=== PATIENT | male | born 1950 | race Caucasian/White ===

== ENCOUNTER 2016-04-21 11:41 | Emergency (ER) | payer MEDICARE, BC ==
[2016-04-21] MEDS ORDERED: NS 0.9% 1000 ML* 1,000 ML IV ONE (12:21)
[2016-04-21] MEDS ORDERED: Iodixanol* (CONTRAST) 320 MG/ML 100 ML SDV IV ONE (12:34)
[2016-04-21 12:41] LABS: Hematocrit 36 % (42-52); Hemoglobin 11.8 g/dl (14.0-18.0); Mean Corpuscular HGB Conc 32 g/dl (31-36); Mean Corpuscular Hemoglobin 26 pg (27-31); Mean Corpuscular Volume 80 fL (80-94); Mean Platelet Volume 9 um3 (7.4-10.4); Red Blood Count 4.53 10^6/ul (4.0-5.4); White Blood Count 11.9 10^3/ul (3.5-10.8)
[2016-04-21 12:42] LABS: Comments Flag Yes
[2016-04-21 12:43] LABS: Add Diff/Slide Review? Slide Review Added; Red Cell Distribution Width 23 % (10.5-15)
[2016-04-21 12:52] LABS: Albumin 3.1 g/dL (3.2-5.2); BUN/Creatinine Ratio 23.1 (8-20); Calcium 8.3 mg/dL (8.6-10.3); EGFR African American 70.8 (>60); EGFR Non-African American 55.1 (>60); Globulin 3.4 g/dL (2-4); Potassium 3.7 mmol/L (3.5-5.0); Total Bilirubin 1.1 mg/dL (0.2-1.0); Total Protein 6.5 g/dL (6.4-8.9)
--- NOTE | 2016-04-21 13:07 | ED ---
Dizziness - HPI Summary HPI Summary: Patient presents for delayed evaluation of weakness and falls for the last 2 to 3 days. Uncertain if he is dehydrated, but denies any head trauma, chest or back pain, change to po intake and feels as if he is drinking and eating fluids well. Supposed to be on 3 day infusions of chemotherapy (Mon thru Mon), but this morning the catheter fell out. - History Of Current Complaint Chief Complaint: EDWeakness Stated Complaint: INCRESSED FALLS, WEAKNESS, Time Seen by Provider: 04/21/16 12:05 Hx Obtained From: Patient - Allergies/Home Medications Allergies/Adverse Reactions: Allergies Allergy/AdvReac Type Severity Reaction Status Date / Time No Known Allergies Allergy Verified 02/09/16 12:46 Home Medications: Home Medications Diazepam TAB(*) [Valium TAB(*)] 10 mg PO BEDTIME 04/21/16 [History Confirmed ] PMH/Surg Hx/FS Hx/Imm Hx Endocrine/Hematology History: Reports: Hx Diabetes - II Cardiovascular History: Reports: Hx Hypertension - not on meds History: Denies: Hx Renal Disease Musculoskeletal History: Reports: Other Musculoskeletal History - SCIATICA Sensory History: Reports: Hx Contacts or Glasses, Hx Hearing Problem Opthamlomology History: Reports: Hx Contacts or Glasses Psychiatric History: Reports: Other Psychiatric Issues/Disorders - sleep disorder - Cancer History Cancer Type, Location and Year: colon - Surgical History Surgery Procedure, Year, and Place: colostomy Infectious Disease History: No Infectious Disease History: Denies: Traveled Outside the [place] in Last 30 Days - Family History Known Family History: Positive: Diabetes Negative: Cardiac Disease, Hypertension - Social History Alcohol Use: None Substance Use Type: Reports: None Smoking Status (MU): Never Smoked Tobacco Review of Systems Negative: Fever, Chills Cardiovascular: Negative Negative: Chest Pain Respiratory: Negative Negative: Shortness Of Breath, Cough Negative: Abdominal Pain, Vomiting, Diarrhea, Nausea Genitourinary: Negative Positive: Weakness All Other Systems Reviewed And Are Negative: Yes Physical Exam Triage Information Reviewed: Yes Vital Signs On Initial Exam: Initial Vitals Temp Pulse Resp BP Pulse Ox 99 F 109 18 100/70 98 04/21/16 12:02 04/21/16 12:02 04/21/16 12:02 04/21/16 12:02 04/21/16 12:02 Vital Signs Reviewed: Yes Appearance: Positive: Well-Appearing, No Pain Distress, Well-Nourished Skin: Positive: Warm, Skin Color Reflects Adequate Perfusion, Dry, Other - L anterior/superior chest port is non tender. Head/Face: Positive: Normal Head/Face Inspection Eyes: Positive: Normal, EOMI, SHAMEKA ENT: Positive: Normal ENT inspection, Hearing grossly normal, Pharynx normal Neck: Positive: Supple, Nontender, No Lymphadenopathy Respiratory/Lung Sounds: Positive: Clear to Auscultation, Breath Sounds Present Cardiovascular: Positive: Normal, RRR, Pulses are Symmetrical in both Upper and Lower Extremities, Tachycardia Abdomen Description: Positive: Nontender, No Organomegaly, Soft, Other: - Ecru and Viable ostomy Musculoskeletal: Positive: Normal, Strength/ROM Intact Neurological: Positive: Normal, Sensory/Motor Intact, Alert, Oriented to Person Place, Time, CN Intact II-III, Reflexes Intact - Kate Coma Scale Coma Scale Total: 15 Diagnostics - Vital Signs Vital Signs Temp Pulse Resp BP Pulse Ox 04/21/16 12:02 99 F 109 18 100/70 98 - Laboratory Lab Results: Lab Results 04/21/16 04/21/16 Range/Units 12:20 12:20 WBC 11.9 H (3.5-10.8) 10^3/ul RBC 4.53 (4.0-5.4) 10^6/ul Hgb 11.8 L (14.0-18.0) g/dl Hct 36 L (42-52) % MCV 80 (80-94) fL MCH 26 L (27-31) pg MCHC 32 (31-36) g/dl RDW 23 H (10.5-15) % Plt Count 114 L (150-450) 10^3/ul MPV 9 (7.4-10.4) um3 Neut % (Auto) 90.3 H (38-83) % Lymph % (Auto) 2.2 L (25-47) % [place] % (Auto) 6.4 (1-9) % Eos % (Auto) 0.2 (0-6) % Baso % (Auto) 0.9 (0-2) % Absolute Neuts (auto) 10.8 H (1.5-7.7) 10^3/ul Absolute Lymphs (auto) 0.3 L (1.0-4.8) 10^3/ul Absolute Monos (auto) 0.8 (0-0.8) 10^3/ul Absolute Eos (auto) 0 (0-0.6) 10^3/ul Absolute Basos (auto) 0.1 (0-0.2) 10^3/ul Absolute Nucleated RBC 0 10^3/ul Nucleated RBC % 0 Sodium 130 L (133-145) mmol/L Potassium 3.7 (3.5-5.0) mmol/L Chloride 100 L (101-111) mmol/L Carbon Dioxide 20 L (22-32) mmol/L Anion Gap 10 (2-11) mmol/L BUN 30 H (6-24) mg/dL Creatinine 1.30 H (0.67-1.17) mg/dL Est GFR ( Amer) 70.8 (>60) Est GFR (Non-Af Amer) 55.1 (>60) BUN/Creatinine Ratio 23.1 H (8-20) Glucose 302 H (70-100) mg/dL Calcium 8.3 L (8.6-10.3) mg/dL Total Bilirubin 1.10 H (0.2-1.0) mg/dL AST 40 H (13-39) U/L ALT 17 (7-52) U/L Alkaline Phosphatase 102 (34-104) U/L Total Protein 6.5 (6.4-8.9) g/dL Albumin 3.1 L (3.2-5.2) g/dL Globulin 3.4 (2-4) g/dL Albumin/Globulin Ratio 0.9 L (1-3) Lipase 57 (11.0-82.0) U/L Result Diagrams: 04/21/16 12:20 04/21/16 12:20 Lab Statement: Any lab studies that have been ordered have been reviewed, and results considered in the medical decision making process. - EKG No standard instances Cardiac Rate: Tachycardia EKG Rhythm: Sinus Tachycardia ST Segment: Normal Ectopy: None Dizzy Course/Dx - Diagnoses Differential Diagnosis/HQI/PQRI: CVA, Metabolic Abnormality, Other - Unclear if this is worsened cerebral metastasis, PE, volume depletion. CT head, CTA chest/ abdomen for metastasis. IVF and discuss with Oncology. Provider Diagnoses: Dehydration - Provider Notifications Discussed Care Of Patient with: Dr. Kim Glez will send a chemo nurse to evaluate the patient's port and agrees with CT scans to determine etiology. After the CT scans, Dr. Glez deferred any plans to Dr. Merino. Dr. Merino, patient, , and I discussed the case, and the patient and decided to be discharged, understand return instructions, and FU care with Dr. Merino tomorrow. Discharge - Discharge Plan Condition: Improved Disposition: HOME Prescriptions: Misc. Devices [Walker/Adult/Folding] 1 mis .SEE ORDER DAILY #1 mis Patient Education Materials: Dehydration (ED) Referrals: Saúl Andrade MD [Primary Care Provider] -
--- NOTE | 2016-04-21 16:56 | RAD ---
INDICATION: Intracranial injury. History of colon cancer. COMPARISON: CT brain February 12, 2016 TECHNIQUE: Noncontrast axial source images were acquired from the skull base to the vertex. FINDINGS: Ventricles/sulci: The ventricles and cisterns are normal in size and configuration for age. Brain parenchyma: There is no focal parenchymal finding, evidence of intracranial mass, or intracranial mass effect. Intracranial hemorrhage:None. Extra-axial spaces: There are no abnormal extra axial fluid collections or evidence of extra-axial mass. Calvarium: There is no calvarial fracture or other calvarial abnormality. Scalp: There is no evidence of scalp or extracalvarial soft tissue abnormality. Paranasal sinuses/mastoid: The paranasal sinuses and mastoid air cells are clear. Other: None. IMPRESSION: NEGATIVE NONCONTRAST EXAMINATION
--- NOTE | 2016-04-21 17:00 | RAD ---
INDICATION: Syncope. Trauma. Falls. History of colon cancer with hepatic metastasis COMPARISON: CT chest/abdomen/pelvis April 18, 2016 TECHNIQUE: Axial source images were obtained from the thoracic inlet to the symphysis pubis following administration of oral and intravenous contrast. 84 mL Omnipaque [address] angiographic technique of the chest was utilized. Routine imaging of the abdomen and pelvis was performed. Coronal and sagittal reconstructed images were acquired. CHEST FINDINGS: Neck/thyroid: The visualized neck to include the thyroid appear normal. Chest wall: There are no acute abnormalities of the bony thorax or chest wall. There is a left-sided Jblvgl-a-[id number] catheter terminating in the superior vena cava. There is no supraclavicular, infraclavicular, or axillary lymphadenopathy. Lungs : There are no pulmonary parenchymal masses. There is mild atelectasis in the right lung base new since examination from 2 days ago. The pulmonary interstitium appears normal. There are no endobronchial lesions. Cardiomediastinal structures: The heart is normal in size. There is no pericardial effusion. There is no evidence of aortic aneurysm or dissection. The pulmonary vessels appear normal. There is no mediastinal or hilar adenopathy. The esophagus appears normal. Pleura : Small, new, right-sided pleural effusion. ABDOMINAL/PELVIC FINDINGS: Liver: The liver is normal in size. Numerous hepatic masses involving both right left hepatic lobes and described on examination performed 2 days ago. There is no ductal dilatation. Gallbladder: There are no calcified gallstones. There is no evidence of wall thickening or pericholecystic fluid. Spleen: Mild splenomegaly. No focal mass. There is a small splenule. Pancreas: There is no evidence of pancreatic mass or ductal dilatation. Adrenal glands: There is no evidence of adrenal mass. Kidneys: The kidneys are normal in size and position. There are prompt nephrograms and there is prompt excretion bilaterally. There are no renal parenchymal masses. There is no evidence of nephrolithiasis. Adenopathy: There is no evidence of adenopathy by size criteria. Fluid collections: There are no free or localized fluid collections. Vessels:The aorta and IVC appear normal GI tract: The upper GI tract is unremarkable. There is a colostomy in left lower quadrant. There is an exophytic sigmoid mass measuring 2.9 x 2.1 cm, unchanged. Pelvic organs: The prostate is enlarged Bladder: There are no bladder masses. Abdominal and pelvic soft tissues: The extraperitoneal abdominal and pelvic soft tissues appear normal.. Osseous structures: There are no acute osseous findings. There is condylar change of the thoracal lumbar spine. IMPRESSION: 1. No CT evidence of acute pulmonary embolic disease. Mild right basilar atelectasis and small right subpleural effusion are new. 2. Extensive hepatic metastasis as also recently described. 3. Mild spinal megaly 4. Colostomy. 5. Exophytic sigmoid lesion, unchanged
[2016-04-21 17:17] VITALS: BP 117/65
== END 2016-04-21 18:01 | disposition home or self-care (01) ==
LOC: ED 11:41
DX: E86.0 Dehydration (principal); E11.8 Type 2 diabetes mellitus with unspecified complications
CPT/HCPCS: 36415; 70450; 71275; 74177; 80053; 83690; 85025; 93005; 96360; 99283; Q9967

== ENCOUNTER 2016-05-04 18:40 | Observation (INO) | payer MEDICARE, BC ==
[2016-05-04] MEDS ORDERED: LORazepam INJ* 2 MG/ML 1 ML VIAL IV PUSH PRN (21:29)
[2016-05-04] MEDS ORDERED: Acetaminophen TAB* 325 MG PO PRN (21:29)
[2016-05-04] MEDS ORDERED: diPHENhydraMINE IV* 50 MG/ML 1 ml VIAL (BENADRYL) IV PRN (21:29)
[2016-05-04] MEDS ORDERED: NS 0.9% 1000 ML* 1,000 ML IV SCH (21:30)
[2016-05-04] MEDS ORDERED: Prochlorperazine TAB* 10 MG PO PRN (21:31)
[2016-05-04] MEDS ORDERED: Ondansetron ODT TAB* 4 MG PO PRN (21:32)
[2016-05-04] MEDS ORDERED: Diazepam TAB(*) 10 MG PO SCH (22:00)
[2016-05-04] MEDS: Heparin VIAL(*) 5000 UNITS/ML VIAL (FIVE THOUSAND) SUBCUT SCH (22:09)
[2016-05-04] MEDS ORDERED: diPHENhydraMINE IV* 50 MG/ML 1 ml VIAL (BENADRYL) IV ONE (23:00)
[2016-05-04 23:34] LABS: Add Diff/Slide Review? Slide Review Added; Comments Flag Yes; Hematocrit 35 % (42-52); Hemoglobin 11.3 g/dl (14.0-18.0); Mean Corpuscular HGB Conc 33 g/dl (31-36); Mean Corpuscular Hemoglobin 27 pg (27-31); Mean Corpuscular Volume 83 fL (80-94); Mean Platelet Volume 9 um3 (7.4-10.4); Red Blood Count 4.21 10^6/ul (4.0-5.4); Red Cell Distribution Width 21 % (10.5-15); White Blood Count 19.6 10^3/ul (3.5-10.8)
[2016-05-04 23:44] LABS: EGFR Non-African American 47.4 (>60)
[2016-05-05] MEDS: Heparin VIAL(*) 5000 UNITS/ML VIAL (FIVE THOUSAND) SUBCUT SCH (05:46)
[2016-05-05 06:17] LABS: Hematocrit 34 % (42-52); Hemoglobin 10.8 g/dl (14.0-18.0); Mean Corpuscular HGB Conc 32 g/dl (31-36); Mean Corpuscular Hemoglobin 27 pg (27-31); Mean Corpuscular Volume 82 fL (80-94); Mean Platelet Volume 9 um3 (7.4-10.4); Red Blood Count 4.08 10^6/ul (4.0-5.4); Red Cell Distribution Width 20 % (10.5-15); White Blood Count 19.2 10^3/ul (3.5-10.8)
[2016-05-05 06:20] LABS: Add Diff/Slide Review? Slide Review Added; Comments Flag Yes
[2016-05-05 06:36] LABS: EGFR African American 67.8 (>60); EGFR Non-African American 52.7 (>60); Globulin 3.7 g/dL (2-4); Potassium 4.6 mmol/L (3.5-5.0); Total Protein 6.7 g/dL (6.4-8.9)
[2016-05-05 07:01] LABS: Immature Granulocytes 14 % (0-9); Neutrophil % 77 % (38-83); Reactive Lymph % 2 % (0-6)
[2016-05-05 07:02] LABS: Hypochromasia 1+; RBC Morphology Normal (Normal)
[2016-05-05 07:48] VITALS: BP 114/71
[2016-05-05] MEDS ORDERED: glipiZIDE TAB.XL* 5 MG PO SCH (08:00)
--- NOTE | 2016-05-05 08:11 | DS ---
- Discharge Summary BRIEF OBV DISCHARGE SUMMARY SEE FULL ADMIT NOTE ADMIT DATE: 05/04/2016 DISCHARGE DATE: 05/05/2016 DISCHARGE DIAGNOSIS: 1. acute oxaliplatin chemotherapy reaction 2. acute renal failure, prerenal azotemia 3. metastatic colon cancer DISCHARGE MEDS: resume all home meds, no changes DISCHARGE FOLLOW UP: discharged to chemotherapy suite to resume 5fu chemotherapy HOSPITAL COURSE: see full admit H+P, however 65 yo M w metastatic CRC on FOLFOX chemotherapy who was recently admitted after an unclear syncopal/fall episode at home that was concerning for a possible chemotherapy reaction. He came to the office yesterday for FOLFOX chemotherapy and had an acute infusion reaction during his oxaliplatin characterized by rigors, hypertension and fever. He was treated appropriately per reaction protocol but was still febrile and tachy at the end of the day and so was admitted overnight for hydration and observation. He is feeling better today and will be discharged to go to the chemotherapy suite for his 5fu infusion and 1 L NS hydration. He will likely be admitted to the ICU for his next treatment per desensitization protocol.
== END 2016-05-05 09:11 | disposition home or self-care (01) ==
LOC: MEDTELE 18:40
PROVIDERS: ADMIT Internal Medicine Hematology & Oncology; ATTEND Internal Medicine Hematology & Oncology
DX: R50.9 Fever, unspecified (principal); I10 Essential (primary) hypertension; T45.1X5A Adverse effect of antineoplastic and immunosuppressive drugs, initial encounter; X58.XXXA Exposure to other specified factors, initial encounter; N17.9 Acute kidney failure, unspecified; C18.9 Malignant neoplasm of colon, unspecified; C79.9 Secondary malignant neoplasm of unspecified site; Z79.899 Other long term (current) drug therapy; D51.9 Vitamin B12 deficiency anemia, unspecified; Z51.11 Encounter for antineoplastic chemotherapy; R11.2 Nausea with vomiting, unspecified
CPT/HCPCS: 36415; 80053; 82565; 84520; 85025; 85610; 85730; 96361; 96372; 96374; 99217; 99219; A9270-GY; G0378; J1200; J1642; J1644

== ENCOUNTER 2016-06-01 07:57 | Observation (INO) | payer MEDICARE, BC ==
[2016-06-01] MEDS ORDERED: Acetaminophen TAB* 325 MG PO PRN (08:53)
[2016-06-01] MEDS ORDERED: Prochlorperazine TAB* 10 MG PO PRN (08:53)
[2016-06-01] MEDS ORDERED: Ondansetron ODT TAB* 4 MG PO PRN (08:53)
[2016-06-01] MEDS ORDERED: Loperamide CAP* 2 MG PO PRN (08:53)
[2016-06-01] MEDS ORDERED: Dexamethasone IV* 20 MG in NS 0.9% 50 ML* 50 ML IVPB ONE (09:00)
[2016-06-01] MEDS ORDERED: Palonosetron* 0.25 MG in NS 0.9% 50 ML* 50 ML IVPB ONE (09:00)
[2016-06-01] MEDS ORDERED: glipiZIDE TAB.XL* 5 MG PO SCH (09:00)
[2016-06-01] MEDS ORDERED: Omeprazole CAP* 20 MG PO SCH (09:00)
[2016-06-01] MEDS ORDERED: NS 0.9% IVPB ONE ×2 (10:00→18:30)
[2016-06-01] MEDS ORDERED: FAMOTIDINE IVPB ONE (10:00)
[2016-06-01] MEDS ORDERED: diPHENhydraMINE IV* 50 MG in NS 0.9% 50 ML* 50 ML IVPB ONE (10:00)
[2016-06-01] MEDS ORDERED: Enoxaparin(*) 40 MG/0.4 ML SYR SUBCUT SCH (10:00)
[2016-06-01] MEDS ORDERED: DEXAMETHASONE IVPB ONE (10:00)
[2016-06-01] MEDS ORDERED: OXALIPLATIN FOR DESENSIT C IVPB ONE (10:30)
[2016-06-01] MEDS ORDERED: D5W IVPB ONE ×6 (10:30→14:30)
[2016-06-01] MEDS ORDERED: Meperidine SYRINGE* 50 MG/ML IV PRN (10:35)
[2016-06-01] MEDS ORDERED: methylPREDNISolone SOD SUCC* 125 MG 2 ML VIAL IV PRN (10:36)
[2016-06-01] MEDS ORDERED: OXALIPLATIN FOR DESENSIT B IVPB ONE (11:30)
[2016-06-01] MEDS ORDERED: OXALIPLATIN FOR DESENSIT A IVPB ONE (12:30)
[2016-06-01] MEDS ORDERED: OXALIPLATIN IVPB ONE ×2 (13:30→14:30)
[2016-06-01] MEDS ORDERED: LEUCOVORIN CALCIUM IVPB ONE (14:30)
[2016-06-01] MEDS ORDERED: FLUOROURACIL IVPB ONE (18:30)
[2016-06-01] MEDS ORDERED: Diazepam TAB(*) 10 MG PO SCH (21:00)
[2016-06-01 23:18] VITALS: BP 137/81
--- NOTE | 2016-06-10 15:44 | DS ---
DISCHARGE SUMMARY: DATE OF ADMISSION: 06/01/2016. DATE OF DISCHARGE: 06/01/2016. PRINCIPAL DIAGNOSIS FOR ADMISSION: Includes an oxaliplatin chemotherapy challenge requiring telemetry. OTHER DIAGNOSES: Include: 1. Colon cancer. 2. Coagulopathy. 3. Full code status. 4. Iron-deficiency anemia. 5. Microcytic anemia. 6. Severe protein-calorie malnutrition. 7. Type 2 diabetes. HOSPITAL COURSE: Briefly, the patient is a 66-year-old white male with colon cancer, who had a severe [facility] and has required oxali challenges under hospital observation. He has doses escalated as per the chemotherapy orders. He had tolerated the chemotherapy exceptionally well and remained stable throughout his oxali challenge. He will follow up with Dr. Merino in approximately 1 to 2 weeks post chemotherapy. DISCHARGE MEDICATIONS: Include: 1. Tylenol as needed. 2. Valium 10 mg at bedtime. 3. Loperamide 1 to 2 tablets 3 times daily as needed. 4. Omeprazole 20 mg daily. 5. Zofran 4 mg every 6 hours as needed for nausea. 6. Prochlorperazine 10 mg every 6 hours as needed for breakthrough nausea. 7. Glipizide XL 5 mg 2 tabs p.o. daily. DIET: He will follow a regular diet. ACTIVITY LEVEL: As tolerated. FOLLOWUP: With Dr. Merino as previously scheduled. FLAVIA SOLIS [id number]/[facility] #: [id number] [facility] CENTERRegino
== END 2016-06-01 20:20 | disposition home or self-care (01) ==
LOC: MEDTELE 08:29 → INTOOBSV 08:29 → MEDTELE 09:02
PROVIDERS: ADMIT Internal Medicine Hematology & Oncology; ATTEND Internal Medicine Hematology & Oncology
DX: Z51.11 Encounter for antineoplastic chemotherapy (principal); C18.9 Malignant neoplasm of colon, unspecified; C78.7 Secondary malignant neoplasm of liver and intrahepatic bile duct; D50.9 Iron deficiency anemia, unspecified; E43 Unspecified severe protein-calorie malnutrition; E11.9 Type 2 diabetes mellitus without complications; Z79.84 Long term (current) use of oral hypoglycemic drugs; I10 Essential (primary) hypertension
CPT/HCPCS: 96375; 96413; 96415; 96417; G0378; J0640; J1200; J1650; J2469; J9190; J9263

== ENCOUNTER 2016-07-13 19:00 | Observation (INO) | payer MEDICARE, BC ==
[2016-07-13] MEDS ORDERED: Ondansetron INJ* 2 MG/ML VIAL IV PRN (19:09)
[2016-07-13] MEDS ORDERED: Prochlorperazine TAB* 10 MG PO PRN (19:12)
[2016-07-13] MEDS ORDERED: Loperamide CAP* 2 MG PO PRN (19:12)
[2016-07-13] MEDS ORDERED: NS 0.9% 1000 ML* 1,000 ML IV SCH ×2 (19:15→20:57)
[2016-07-13] MEDS ORDERED: Metoprolol Tartrate TAB* 25 MG PO ONE (19:16)
[2016-07-13] MEDS ORDERED: Enoxaparin(*) 40 MG/0.4 ML SYR SUBCUT SCH (20:00)
[2016-07-13] MEDS ORDERED: Diazepam TAB(*) 10 MG PO SCH (21:00)
[2016-07-14 04:55] LABS: Hematocrit 36 % (42-52); Hemoglobin 11.9 g/dl (14.0-18.0); Mean Corpuscular HGB Conc 34 g/dl (31-36); Mean Corpuscular Hemoglobin 29 pg (27-31); Mean Corpuscular Volume 88 fL (80-94); Mean Platelet Volume 8 um3 (7.4-10.4); Red Blood Count 4.05 10^6/ul (4.0-5.4); Red Cell Distribution Width 15 % (10.5-15); White Blood Count 8.6 10^3/ul (3.5-10.8)
[2016-07-14 05:00] LABS: Comments Flag Yes
[2016-07-14 05:07] LABS: BUN/Creatinine Ratio 17.9 (8-20); Calcium 8.4 mg/dL (8.6-10.3); EGFR African American 116.9 (>60); EGFR Non-African American 90.9 (>60)
[2016-07-14] MEDS: Omeprazole CAP* 20 MG PO SCH ×2 (08:55→08:58)
[2016-07-14] MEDS ORDERED: glipiZIDE TAB.XL* 5 MG PO SCH (09:00)
[2016-07-14 09:06] VITALS: BP 113/60
--- NOTE | 2016-07-14 12:39 | DS ---
DISCHARGE SUMMARY: DATE OF ADMISSION: 07/13/16 DATE OF DISCHARGE: 07/14/16 ATTENDING PHYSICIAN: Kim Glez MD (DICTATED BY FLAVIA SOLIS) PRINCIPAL DIAGNOSES: Chemotherapy reaction to oxaliplatin, sinus tachycardia, history of iron deficiency anemia, microcytic anemia, type 2 diabetes, history of metastatic colorectal cancer and coagulopathy. HOSPITAL COURSE: Briefly, the patient was admitted to the hospital after a reaction to oxaliplatin as he has had previous reactions in the past and was finishing up oxaliplatin desensitization. Late into the infusion, he had an infusion reaction including fever, tachycardia, hypertension. The first time he was admitted on 05/05/16, he had similar symptoms this infusion which included shakiness and was found to have elevated blood pressure and tachycardia up to a pulse of 140. After receiving Benadryl, famotidine, and Decadron and also receiving Singulair and additional Benadryl, it was decided that the patient needed significant observation including telemetry over the night in the interest of his safety and to monitor any further reactions. The patient on telemetry was sinus tachycardia throughout the evening and responded to a beta-stef and increased fluids. He did not have any additional reactions including shortness of breath, trouble swallowing, or additional shaking episodes, and had tolerated the remaining evening very well. He will be escorted down to the [facility] office to be hooked up to his 5-FU pump for an additional 46 hours to complete his regimen and follow up with Dr. Merino in approximately 10 to 14 days. His vital signs were stable and afebrile, which include blood pressure of 115/65, pulse somewhere in the order of 91 to 103, respiratory rate 16, O2 sat of 96% on room air, and a temperature of 98.6 on the day of his discharge. DIET: He will follow a regular diet. ACTIVITY LEVEL: To ambulate as tolerated. DISCHARGE INSTRUCTIONS: Continue his home medications as previously prescribed. FLAVIA SOLIS [id number]/[facility] #: [id number] MTDD
== END 2016-07-14 11:23 | disposition home or self-care (01) ==
LOC: MEDTELE 20:03
PROVIDERS: ADMIT Internal Medicine Hematology & Oncology; ATTEND Internal Medicine Hematology & Oncology
DX: R00.0 Tachycardia, unspecified (principal); R50.9 Fever, unspecified; R11.0 Nausea; T45.1X5A Adverse effect of antineoplastic and immunosuppressive drugs, initial encounter; Y92.239 Unspecified place in hospital as the place of occurrence of the external cause; C19 Malignant neoplasm of rectosigmoid junction; D50.9 Iron deficiency anemia, unspecified; E11.9 Type 2 diabetes mellitus without complications; D68.9 Coagulation defect, unspecified
CPT/HCPCS: 36415; 80048; 85025; 96360; 96361; 96372; A9270-GY; G0378; J1650

== ENCOUNTER 2017-09-22 16:28 | Observation (INO) | payer MEDICARE, BC ==
[2017-09-22] MEDS ORDERED: NS 0.9% 1000 ML* 1,000 ML IV SCH (17:00)
[2017-09-22] MEDS ORDERED: Acetaminophen TAB* 325 MG PO PRN (17:00)
[2017-09-22] MEDS ORDERED: Ondansetron ODT TAB* 4 MG PO PRN (17:08)
[2017-09-22] MEDS ORDERED: Prochlorperazine TAB* 10 MG PO PRN (17:08)
[2017-09-22] MEDS: Hydrocortisone 1% CREAM* 30 GM TUBE TOPICAL SCH (20:36)
[2017-09-22] MEDS ORDERED: Diazepam TAB(*) 10 MG PO SCH (21:00)
[2017-09-23 05:50] LABS: ABS Basophils 0 10^3/ul (0-0.2); ABS Eosinophils 0.1 10^3/ul (0-0.6); ABS Lymphocytes 0.7 10^3/ul (1.0-4.8); ABS Monocytes 0.5 10^3/ul (0-0.8); ABS Neutrophils 1.4 10^3/ul (1.5-7.7); ABS Nucleated RBC 0 10^3/ul; Eosinophil % 5.1 % (0-6); Hematocrit 25 % (42-52); Hemoglobin 8.2 g/dl (14.0-18.0); Lymphocyte % 25.1 % (25-47); Mean Corpuscular HGB Conc 33 g/dl (31-36); Mean Corpuscular Hemoglobin 29 pg (27-31); Mean Corpuscular Volume 87 fL (80-94); Mean Platelet Volume 7.7 um3 (7.4-10.4); Nucleated Red Blood Cells % 0.2; Platelet Count 86 10^3/ul (150-450); Red Blood Count 2.81 10^6/ul (4.00-5.40); Red Cell Distribution Width 20 % (10.5-15); White Blood Count 2.8 10^3/ul (3.5-10.8)
[2017-09-23 05:57] LABS: EGFR Non-African American 77.7 (>60)
[2017-09-23] MEDS ORDERED: Ferric Gluconate IV* 25 MG in NS 0.9% 50 ML* 50 ML IVPB ONE (07:30)
--- NOTE | 2017-09-23 07:30 | PN ---
Progress Note - Progress Note Date of Service: 09/23/17 SOAP: Subjective: []Started anticoagulation for DVT in right leg on Mon, excessive bleeding in ostomy on night. Anticoagulation held and better. No bleeding overnight and ostomy working well. Has continued swelling in right leg, pain is minimal. Acetaminophen (Tylenol Tab*) 650 mg PO Q4H PRN PRN Reason: FEVER/PAIN Diazepam (Valium Tab(*)) 10 mg PO BEDTIME [facility] Last Admin: 09/22/17 22:44 Dose: 10 mg Heparin Sodium (Porcine) (Heparin Flush Port (Ivad)) 5 ml FLUSH DAILY [facility]; Protocol Hydrocortisone (Hytone Cream 1%*) 1 applic TOPICAL BID [facility] Last Admin: 09/22/17 20:36 Dose: 1 applic Magnesium Oxide (Magox 400 Tab*) 400 mg PO DAILY [facility] Ondansetron HCl (Zofran Odt Tab*) 4 mg PO Q6H PRN PRN Reason: NAUSEA Prochlorperazine (Compazine Tab*) 10 mg PO Q6H PRN PRN Reason: NAUSEA Objective: [] Vital Signs Temp Pulse Resp BP Pulse Ox 97.4 F 87 16 102/56 100 09/23/17 03:30 09/23/17 03:30 09/23/17 03:30 09/23/17 03:36 09/23/17 03:30 HEENT: OM moist, conjunctiva pale CTA RRR S1S2 Obese, no bleeding at ostomy this am, brown stool Ext +3 edema right leg, +1 on left. Assessment: []67 year old with metastatic colon cancer and ostomy in place. Started on anticoagulation for DVT and developed acute bleeding, Hgb 9.7 - 8.2. Has stopped off anticoagulation. Plan: []1. Bleeding has stopped but cannot re-start anticoagulation. - Consultation from surgery for IVC filter - Hold anticoagulation for now, may re-start Monday at reduced dose - compression stockings, elevate leg 2. Anemia. Will check iron studies, consider IV iron but hold on PRBC at this time. 3. Will consider discharge once IVC filter in place, possible discharge this afternoon.
[2017-09-23] MEDS: Hydrocortisone 1% CREAM* 30 GM TUBE TOPICAL SCH (08:56)
[2017-09-23] MEDS ORDERED: Magnesium Oxide TAB* 400 MG PO SCH (09:00)
[2017-09-23] MEDS ORDERED: Ferric Gluconate IV* 100 MG in NS 0.9% 100 ML* 100 ML IVPB ONE (09:30)
[2017-09-23] MEDS ORDERED: Heparin DIALYSIS ONLY(*) 1,000 UNITS/ML VIAL ONE (09:58)
[2017-09-23] MEDS ORDERED: Lidocaine 1% INJ* 10 MG/ML 30 ML SDV ONE (09:58)
[2017-09-23] MEDS ORDERED: Naloxone* 0.4 MG/ML 1 ML VIAL IV PRN (10:32)
[2017-09-23] MEDS ORDERED: Lidocaine 1%* 5 ML VIAL ONE (10:35)
[2017-09-23] MEDS ORDERED: Iohexol 180 (CONTRAST) 10 ML SDV IV ONE (10:43)
--- NOTE | 2017-09-23 11:15 | BRIEFOPN ---
Brief Operative Note - Surgery Procedures: Procedures Pre-OP Diagnoses: DVT, GI bleed Post-op Diagnosis: same Procedure: Insertion of IVC filter Surgeon: Aura Asst: none Anethesia: local MAC EBL: minimal IVF: crystalloid Specimen: none Drains: none
--- NOTE | 2017-09-23 15:48 | OP ---
CC: Dr. Saúl Andrade; [facility]; Dr. Fabiano Merino OPERATIVE REPORT: DATE OF OPERATION: 09/23/17 DATE OF : 46 SURGEON: Bladimir Chavarria MD. INDICATIONS: Mr. Perry is a 67-year-old gentleman, known to me with diagnosis of metastatic colon cancer, who is status post diverting colostomy, who has had episodes of bleeding from the colostomy s ite. The patient recently was diagnosed with a DVT extensive at the right lower extremity. He was t reated with blood thinners and promptly restarted bleeding at the ostomy site. Decision was made to hold off on b.i.d. Lovenox and the patient's bleeding was controlled at the ostomy site and considera tion for IVC filter was made. I discussed this with my partner, who discussed with Hematology/Oncolo gy. I outlined the details of procedure to Mr. Perry and his going over the risks, benefits, and alternatives and they agreed to proceed. We spoke of the possible complications, which include, but not limited to, bleeding, infection, need for removal, retroperitoneal hematoma, and the possibil ity of not being able to place the filter successfully. DESCRIPTION OF PROCEDURE: The patient was brought to the operating room, placed on the operating tab le in supine position. Gentle sedation was given. The patient's groins bilaterally were clipped and then prepped and draped in the standard surgical fashion. Time-out was performed. The left common femoral vein was accessed and a wire inserted under fluoroscopy. The wire was noted t o go laterally and we changed the wire to a Glidewire, which also went in the same fashion. The need le and the wire were then removed in its entirety and the vein was then accessed again. At this time , the regular wire set was utilized. We were able to manage to get this into the IVC and from this, we placed a dilator given with the access kit. Once the dilator was in place, I returned back to the stiff longer wiring. This was placed in the appropriate fashion. We then removed the dilator and i nserted the Argon Option Elite dilator and catheter in the appropriate fashion. Fluoroscopy was utilized. A venogram was taken. This was rapid transient and not very illuminating, but felt after review of the CAT scan that we were in the appropriate positioning and the patient wi th a good normal-appearing IVC. The plan was for deployment between the second and third lumbar site s. The filter was then connected to the catheter in the appropriate orientation for the femoral position ing. This was then pushed in in the appropriate fashion with the dilator until we were in the positi on we wanted. We then backed out the catheter and deployed the filter in the appropriate fashion. T he hook was in the appropriate area. We then backed out the catheter and wires and applied pressure to the groin. Hemostasis was achieved, images were kept, and a bandage was placed at the groin. The patient tolerated the procedure well, was transferred to the PACU in stable condition. This is a removable catheter and should be removed as soon as it is no longer necessary. It does rep resent a risk for thrombus and for migration. [id number]/[facility] #: [id number]
[2017-09-23 17:37] VITALS: BP 99/51
[2017-09-23] MEDS ORDERED: Midazolam* 1 MG/ML 5 ML VIAL (5 MG) IV ONE (18:37)
[2017-09-23] MEDS ORDERED: fentaNYL* 50 MCG/ML 2 ML VIAL (100 MCG VIAL) IV ONE (18:37)
--- NOTE | 2017-09-24 01:12 | DS ---
DISCHARGE SUMMARY ADDENDUM: DATE OF ADMISSION: 09/22/17 DATE OF DISCHARGE: 09/23/17 NOTE: This is an addendum to history and physical from 09/22/17. DISCHARGE DIAGNOSIS: Bleeding from colostomy site on anticoagulation. The patient is being discharged from observation status. He came in yesterday after excessive bleeding from his ostomy site on Lovenox. He has 2 days of treatment for acute DVT. Lovenox was stopped and he had no additional bleeding overnight. Hemoglobin was stable this morning at 8.2 and IVC filter placed by Dr. Chavarria without complication. He will go home today off anticoagulation and followup in the office on Monday. Other than stopping Lovenox, no change in his home medications. He will call over the weekend with any additional episodes. [id number]/[facility] #: [id number] ELSA
--- NOTE | 2017-09-25 09:30 | RAD ---
INDICATION: IVC filter placement COMPARISONS: None relevant TECHNIQUE: Fluoroscopy was provided for an IVC filter placement by Dr. Chavarria. Total fluoroscopy time is: 279.6 seconds FINDINGS: Spot images demonstrate an IVC filter overlying the right hemiabdomen. IMPRESSION: FLUOROSCOPY WAS PROVIDED FOR IVC FILTER PLACEMENT CPT II Codes: G9500
== END 2017-09-23 18:37 | disposition home or self-care (01) ==
LOC: MED 17:30 → INTOOBSV 17:30
PROVIDERS: ADMIT Internal Medicine Hematology & Oncology; ATTEND Internal Medicine Hematology & Oncology
DX: K94.01 Colostomy hemorrhage (principal); C78.5 Secondary malignant neoplasm of large intestine and rectum; I82.401 Acute embolism and thrombosis of unspecified deep veins of right lower extremity; Z79.899 Other long term (current) drug therapy; R21 Rash and other nonspecific skin eruption; E11.9 Type 2 diabetes mellitus without complications; I10 Essential (primary) hypertension; E66.9 Obesity, unspecified; Z68.32 Body mass index [BMI] 32.0-32.9, adult; C18.7 Malignant neoplasm of sigmoid colon; C18.9 Malignant neoplasm of colon, unspecified; Z79.84 Long term (current) use of oral hypoglycemic drugs
CPT/HCPCS: 36415; 76000; 80053; 82728; 83540; 83550; 85025; 96365; 96366; 99219; 99225; 99232; A9270-GY; C1880; G0378; J1642; J1644; J2250; J2916; J3010

== ENCOUNTER 2017-12-17 10:37 | Inpatient (IN) | payer MEDICARE, BC ==
--- NOTE | 2017-12-17 12:00 | ED ---
Complex/Multi-Sys Presentation - HPI Summary HPI Summary: This patient is a 67 year old M presenting to [facility] accompanied by family status post fall that occurred last night. Family reports patient fell out of bed and onto the floor. Patient denies LOC and hitting his head. The patient rates the pain 0/10 in severity. Symptoms aggravated by nothing. Symptoms alleviated by nothing. Patient reports decreased appetite, fatigued, incontinence, and confusion. Patient states he is currently a colon cancer stage 4 patient. reports patient was taken off of chemotherapy on Monday. - History Of Current Complaint Chief Complaint: EDGeneral Time Seen by Provider: 12/17/17 11:46 Hx Obtained From: Patient Onset/Duration: Sudden Onset, Lasting Days, Still Present Timing: Constant Severity Currently: Mild Severity Initially: Mild Location: Negative Aggravating Factor(s): Nothing Alleviating Factor(s): Nothing Associated Signs And Symptoms: Positive: Other - Patient reports decreased appetite, fatigued, incontinence, and confusion - Allergies/Home Medications Allergies/Adverse Reactions: Allergies Allergy/AdvReac Type Severity Reaction Status Date / Time enoxaparin [From Lovenox] Allergy Severe Shakes Verified 12/17/17 10:45 oxaliplatin AdvReac Severe Unknown Verified 12/17/17 10:45 Reaction Details PMH/Surg Hx/FS Hx/Imm Hx Previously Healthy: No Endocrine/Hematology History: Reports: Hx Diabetes - TYPE 2 Cardiovascular History: Reports: Hx Hypertension - not on meds- comes and goes Denies: Hx Pacemaker/ICD GI History: Reports: Hx Cirrhosis, Hx Ileostomy - Colostomy, Other GI Disorders - Liver CA, colon CA History: Denies: Hx Renal Disease Musculoskeletal History: Reports: Other Musculoskeletal History - SCIATICA HX only Sensory History: Reports: Hx Contacts or Glasses, Hx Hearing Problem Denies: Hx Hearing Aid Opthamlomology History: Reports: Hx Contacts or Glasses Neurological History: Reports: Other Neuro Impairments/Disorders - chemo related neuropathy, sciatica Hx Psychiatric History: Reports: Other Psychiatric Issues/Disorders - sleep disorder Denies: Hx Panic Disorder - Cancer History Cancer Type, Location and Year: Current: colon, liver Hx Chemotherapy: Yes - Surgical History Surgery Procedure, Year, and Place: colostomy, interventional radiology liver chemo pods, POWERPORT LCW, STENT IN GROIN FOR LOWER EXTREMITY DVT Hx Anesthesia Reactions: No - Immunization History Date of Tetanus Vaccine: up to date Date of Influenza Vaccine: 03/2016 Infectious Disease History: No Infectious Disease History: Denies: Traveled Outside the [place] in Last 30 Days - Family History Known Family History: Positive: Diabetes Negative: Cardiac Disease, Hypertension - Social History Occupation: Retired Lives: With Family Alcohol Use: None Hx Substance Use: No Substance Use Type: Reports: None Hx Tobacco Use: No Smoking Status (MU): Never Smoked Tobacco Review of Systems Positive: Fatigue Positive: Other - Positive decreased appetite Positive: incontinence Neurological: Other - Positive confusion All Other Systems Reviewed And Are Negative: Yes Physical Exam - Summary Physical Exam Summary: VITAL SIGNS: Reviewed. GENERAL: Patient is a Ill-appearing, debilitated, fragile male who is lying comfortable in the stretcher. Patient is not in any acute respiratory distress. HEAD AND FACE: No signs of trauma. No ecchymosis, hematomas or skull depressions. No sinus tenderness. EYES: PERRLA, EOMI x 2, No injected conjunctiva, no nystagmus. EARS: Hearing grossly intact. Ear canals and tympanic membranes are within normal limits. MOUTH: Oropharynx within normal limits. NECK: Supple, trachea is midline, no adenopathy, no JVD, no carotid bruit, no c- spine tenderness, neck with full ROM. CHEST: Symmetric, no tenderness at palpation LUNGS: Clear to auscultation bilaterally. No wheezing or crackles. Breath sounds decreased bilaterally CVS: Regular rate and rhythm, S1 and S2 present, no murmurs or gallops appreciated. ABDOMEN: Soft, non-tender. Distended. No rebound no guarding, and no masses palpated. Bowel sounds are normal. EXTREMITIES: FROM in all major joints, no edema, no cyanosis or clubbing. NEURO: Alert and oriented x 3. No acute neurological deficits. Speech is normal and follows commands. SKIN: Dry and warm Triage Information Reviewed: Yes Vital Signs On Initial Exam: Initial Vitals Temp Pulse Resp BP Pulse Ox 96.1 F 128 20 122/67 96 12/17/17 10:40 12/17/17 10:40 12/17/17 10:40 12/17/17 10:40 12/17/17 10:40 Vital Signs Reviewed: Yes Diagnostics - Vital Signs Vital Signs Temp Pulse Resp BP Pulse Ox 12/17/17 10:40 96.1 F 128 20 122/67 96 - Laboratory Result Diagrams: 12/20/17 06:55 12/19/17 09:50 Lab Statement: Any lab studies that have been ordered have been reviewed, and results considered in the medical decision making process. - Radiology CXR Radiology Interpretation Completed By: Radiologist - CXR reveals, per radiologist, multiple pulmonary masses. No definite alveolar infiltrate are noted. ED physician has reviewed this radiology report. - CT Brain CT CT Interpretation Completed By: Radiologist - Brain CT reveals, per radiologist , no intracranial mass or hemorrhage is noted. ED physician has reviewed this radiology report. - EKG 1238 Cardiac Rate: Tachycardia EKG Rhythm: Sinus Rhythm - 118 BPM EKG Interpretation: RBBB EKG Comparison: No Significant Change - from EKG taken on 04/21/2016 Complex Multi-Symp Course/Dx Assessment/Plan: This patient is a 67 year old M presenting to [facility] accompanied by family status post fall that occurred last night. Family reports patient fell out of bed and onto the floor. Patient denies LOC and hitting his head. The patient rates the pain 0/10 in severity. Symptoms aggravated by nothing. Symptoms alleviated by nothing. Patient reports decreased appetite, fatigue, incontinence, and confusion. Patient states he is currently a colon cancer stage 4 patient. reports patient was taken off of chemotherapy on Monday. Blood work shows wbc's of 14, hemoglobin 8.4, hematocrit 26 platelets 133. Sodium 128, glucose 195, lactic acid is 2.4, calcium 8.4, magnesium 1.7, total bili is 5.5 AST 124 AST 54 alkaline phosphatase of 271. Chest x-ray shows no acute pathology. Head CT impression no acute intracranial pathology. In the ED course the patient was given IV fluids for hydration, patient was given magnesium by mouth. Patient was also given lactulose for a possible hepatic encephalopathy. I discussed the case with and Dr. Merino and he agrees needs to be admitted. He recommends admission to the hospitalist services. I discussed case with Dr. Azul from the hospital services who accepted the patient for admission. - Diagnoses Differential Diagnoses/HQI/PQRI: Cardiac Ischemia, CVA, Metabolic Abnormality, Urinary Tract Infection Provider Diagnoses: Altered mental status, Hepatic encephalopathy - Physician Notifications Instructed by Provider To: Other - Dr. Merino was paged for consult at [phone]. Consult with Dr. Merino (oncology) at [phone]. He recommends patient be admitted for further evaluation. Consult with Dr. Azul (hospitalist) at [phone]. She agrees to admit pt for further evaluation. Discharge - Sign-Out/Discharge Documenting (check all that apply): Patient Departure - Discharge Plan Condition: Stable Disposition: ADMITTED TO [facility] - Billing Disposition and Condition Condition: STABLE Disposition: Admitted to [facility] - Attestation Statements Document Initiated by Scribe: Yes Documenting Scribe: Edilia Wilder Provider For Whom Scribe is Documenting (Include Credential): Daniel Pulido MD Scribe Attestation: IEdilia, scribed for Daniel Pulido MD on 12/22/17 at 2111. Scribe Documentation Reviewed: Yes Provider Attestation: The documentation as recorded by the Edilia gregg accurately reflects the service I personally performed and the decisions made by Daniel thurman MD
[2017-12-17 12:41] LABS: Hematocrit 26 % (42-52); Hemoglobin 8.4 g/dl (14.0-18.0); Mean Corpuscular HGB Conc 32 g/dl (31-36); Mean Corpuscular Hemoglobin 27 pg (27-31); Mean Corpuscular Volume 85 fL (80-94); Mean Platelet Volume 8.7 um3 (7.4-10.4); Platelet Count 133 10^3/ul (150-450); Red Cell Distribution Width 20 % (10.5-15)
[2017-12-17 12:44] LABS: ABS Basophils 0.1 10^3/ul (0-0.2); ABS Eosinophils 0 10^3/ul (0-0.6); ABS Lymphocytes 0.8 10^3/ul (1.0-4.8); ABS Monocytes 1.8 10^3/ul (0-0.8); ABS Neutrophils 11.3 10^3/ul (1.5-7.7); ABS Nucleated RBC 0 10^3/ul; Eosinophil % 0.1 % (0-6); Lymphocyte % 5.8 % (25-47); Nucleated Red Blood Cells % 0
[2017-12-17 12:51] LABS: INR 1.84 (0.77-1.02)
[2017-12-17] MEDS ORDERED: NS 0.9% 1000 ML* 1,000 ML IV ONE ×2 (12:53→15:28)
[2017-12-17 12:59] LABS: EGFR Non-African American 80.6 (>60)
--- NOTE | 2017-12-17 13:21 | RAD ---
Indication: Confusion. CT of the brain was performed without IV contrast. Ventricular structures are midline. No midline shift is noted. The extra-axial spaces are unremarkable. There is no evidence of intracranial mass or hemorrhage. No other high or low density lesions are identified. Mastoid air cells and paranasal sinuses are unremarkable. When compared to previous exam of January 19, 2017 no significant change is noted. IMPRESSION: No intracranial mass or hemorrhage is noted.
--- NOTE | 2017-12-17 13:26 | RAD ---
Indication: Confusion. Single frontal view of the chest performed at 1250 hours was reviewed. Comparison is made with previous exam dated February 15, 2016. No mediastinal shift is noted. Heart is of normal size and configuration. Multiple pulmonary masses are noted. Central line is in place. IMPRESSION: MULTIPLE PULMONARY MASSES. NO DEFINITE ALVEOLAR INFILTRATE ARE NOTED.
[2017-12-17] MEDS ORDERED: Magnesium Oxide TAB* 400 MG PO ONE (14:47)
[2017-12-17 14:49] LABS: Urine Appearance Clear; Urine Blood Negative (Negative); Urine Color Amber; Urine Ketones Negative (Negative); Urine Protein Negative (Negative); Urine Specific Gravity 1.017 (1.010-1.030); Urine Urobilinogen Positive (Negative)
[2017-12-17] MEDS ORDERED: Albuterol 2.5 MG/3 ML NEB.SOL* (0.083%) INH PRN (15:17)
[2017-12-17] MEDS ORDERED: Al Hydrox/Mg Hydrox/Simet LIQ* 30 ML UDC PO PRN (15:17)
[2017-12-17] MEDS ORDERED: Ondansetron INJ* 2 MG/ML VIAL IV PRN (15:17)
[2017-12-17] MEDS ORDERED: Magnesium Hydroxide LIQ* 30 ML UDC PO PRN (15:17)
[2017-12-17] MEDS ORDERED: Morphine INJ* 4 MG/ML 1 ML SYRINGE (NEW SYRINGE VERSION) IV PRN (15:17)
[2017-12-17] MEDS ORDERED: Acetaminophen TAB* 325 MG PO PRN (15:17)
[2017-12-17] MEDS ORDERED: Prochlorperazine TAB* 10 MG PO PRN (15:23)
[2017-12-17] MEDS ORDERED: Loperamide CAP* 2 MG PO PRN (15:23)
[2017-12-17] MEDS ORDERED: Dextrose 50% Syringe 50 ML* 25 GM/50 ML SYRINGE IV PUSH PRN (15:25)
[2017-12-17] MEDS: NS 0.9% 1000 ML* 1,000 ML IV SCH (17:17)
[2017-12-17] MEDS: Insulin LISPRO* 1 UNITS UNIT SUBCUT SCH ×2 (17:23→20:32)
--- NOTE | 2017-12-17 20:52 | HP ---
AMENDED REPORT NOW INCLUDES COSIGNER DESIGNATION CC: Dr. Andrade; Dr. Leonardo Merino* ADMISSION HISTORY AND PHYSICAL: DATE OF ADMISSION: 12/17/17 ADMITTING HOSPITALIST: Dr. Caro Azul* (dictated by FLAVIA Yañez). PRIMARY CARE PROVIDER: Dr. Andrade. PRIMARY ONCOLOGIST: Dr. Leonardo Merino. CHIEF COMPLAINT: Generalized weakness. HISTORY OF PRESENT ILLNESS: Mr. Perry is a 67-year-old gentleman with past medical history significant for metastatic colon cancer for which he has been receiving chemotherapy up to last Monday in addition to history of type 2 diabetes mellitus, hypertension, obesity, and liver cirrhosis, who presented to the emergency room earlier today with 2 to 3 days' history of generalized weakness and loss of appetite. According to the patient's , last night, he has been acting "a little funny," asked her weird questions such as where is your and he seemed to lose touch with his surroundings. She denied any weakness to the limbs or slurred speech or any stroke symptoms. The patient himself denied any chest pain, abdominal pain, nausea, or vomiting; however, he notes generalized weakness and loss of appetite for the past 2 to 3 days. He has been receiving chemotherapy both orally and IV infusion according to the , was stopped last Monday due to multiple side effects. tells me that the patient was given 2 weeks of a break to see if he feels well, they may try more chemotherapy in the near future. He was evaluated in the emergency room and laboratory workup showed significant elevation in his liver enzymes compared to a prior laboratory workup. The patient himself denied any jaundice , changes in stool out of the stoma, or changes in the urine output. In general , he has been having less stool in the bag and less urine output every day and he feels that he has a dry mouth constantly. He was also found to have leukocytosis with white count of 14,000 and anemia, which appears to be chronic for him with hemoglobin of 8.4, appears to be at his baseline in the last couple of months. Given his ongoing symptoms and findings of dehydration and hepatic encephalopathy, we were asked to see the patient to consider admission for the oncology group. Dr. Pulido in the emergency department also contacted Dr. Merino, who agreed to admission terms and will follow up with the patient tomorrow. PAST MEDICAL HISTORY: As mentioned above, significant for: 1. Cirrhosis, which is thought to be secondary to chemotherapy. 2. Psoriasis. 3. Sciatica. 4. Psoriatic ascites. 5. Hypertension. 6. Type 2 diabetes mellitus. 7. Metastatic colon cancer to the liver. PAST SURGICAL HISTORY: Significant for: 1. Colon resection with end colostomy. 2. [place] filter placement last summer. 3. Mediport placement. CURRENT MEDICATIONS: His medications at home include: 1. Tylenol 500 mg tablets, 2 tablets every 6 hours as needed for fever or pain. 2. Valium 10 mg p.o. q.h.s. p.r.n. for anxiety. 3. Lasix 40 mg p.o. daily. 4. Glipizide 10 mg p.o. daily. 5. Iron supplement 150 mg p.o. daily. 6. Imodium 2 mg 1 to 2 tablets every 6 hours as needed for diarrhea. 7. Magnesium oxide 400 mg p.o. daily. 8. Zofran 4 mg p.o. q.6 hours as needed for nausea. 9. Compazine 10 mg p.o. q.6 hours as needed for nausea. 10. Spironolactone 50 mg p.o. daily. ALLERGIES: He is allergic to LOVENOX and OXALIPLATIN. FAMILY HISTORY: Reviewed. Father at age 93 from diabetic complication and mother at age 93 from head and neck cancer. SOCIAL HISTORY: The patient lives with his . He is a nonsmoker who denies alcohol intake. His is the healthcare proxy carrier and he wishes to be a full code. REVIEW OF SYSTEMS: See HPI. Otherwise, 14-point review of systems was examined and they were essentially negative. PHYSICAL EXAMINATION GENERAL: He is a frail, older gentleman, appears ill, jaundiced, but in no acute distress or discomfort at the time of admission. VITAL SIGNS: Blood pressure 120/77, pulse of 108, temperature of 96.1, respirations of 19 with O2 sat of 96% on room air. HEENT: Head is normocephalic, atraumatic. Sclerae are slightly icteric. PERRLA, EOMs intact. Oropharynx is markedly dry. NECK: Supple. Trachea midline. No cervical adenopathy or thyromegaly. LUNGS: Clear to auscultation bilaterally. HEART: Rapid rate and rhythm, but normal S1 and S2 without rubs, murmurs, or gallops. BACK: With normal curvature. No CVA tenderness. ABDOMEN: Soft, nontender, and mildly distended. There are no hernias, masses, or hepatosplenomegaly noted. There is colostomy noted at the left upper quadrant, appears to be intact, viable with soft light brown stool output in the bag. There is no hernia noted or evidence of peristomal bleeding. RECTAL: Exam deferred at this time. EXTREMITIES: Without cyanosis, clubbing, or edema. NEUROLOGIC: He is awake, alert to time, place, and self. Handgrip is equal bilaterally. Sensation is intact throughout. LABORATORY DATA: CBC with white count of 14,000, hemoglobin 8.4, hematocrit 26 , and platelets of 133. Chemistry panel: Sodium of 128, potassium 4.6, chloride of 97, CO2 of 24, BUN of 23, creatinine of 0.93, his glucose is 195, lactic acid 2.4, magnesium 1.7. Total bilirubin 5.5, AST 124, ALT 54, alkaline phosphatase 371. Ammonia is 56. TSH 2.25. His urinalysis was positive for urobilinogen. Toxicology panel was negative. ACCESSORY DIAGNOSTIC DATA: Chest x-ray with no evidence of cardiopulmonary disease. Brain CT with no intracranial issues. IMPRESSION: A 67-year-old gentleman with metastatic colon cancer as well as history of deep venous thrombosis , cirrhosis, diabetes mellitus, and hypertension, who presented to the emergency room with 2 to 3 days' history of generalized weakness and decreased oral intake, who is found to have severe dehydration and hepatic encephalopathy and will be admitted to the hospitalist service for the following. ASSESSMENT AND PLAN: 1. Hepatic encephalopathy. The patient has elevated ammonia in his blood work and already had a couple of episodes of altered mental status at home related to elevated liver enzymes and ammonia for which he was given a dose of lactulose in the emergency room as well as a liter of IV fluid hydration. I will give him another liter of normal saline and keep hydrating him given his decreased p.o. intake for the past 2 to 3 days. He continued to make urine at home and he has got reasonable output in the stoma. Does not seem to have any bowel issues at this time and has no complaints of nausea, vomiting, or abdominal pain. 2. Dehydration. Again, we will continue gentle hydration. He was given 2 L of IV fluid bolus in the emergency room. 3. Hypertension. I will continue his spironolactone per home dose. I will hold his Lasix given his normotensive numbers as well as his dehydration at this point. 4. History of metastatic colon cancer. Again, the patient experienced some side effects from chemotherapy including lack of appetite; however, he does not have any nausea. We will continue IV hydration, encourage p.o. intake and await Hematology/Oncology recommendations. 5. Type 2 diabetes mellitus. I will cover the patient with sliding scale with lispro and do glucose check on him per protocol. 6. Hypomagnesemia. The patient received dose of magnesium replacement in the emergency room and we will continue his daily dose of 400 mg tablet daily. 7. DVT prophylaxis. The patient at high risk; however, he had some reaction to Lovenox in the past as well as multiple episodes of peristomal bleeding for which he is not covered with any anticoagulation therapy after he had [place] filter placement this summer. I will continue his SCDs for the time being and will not cover him with any chemical anticoagulation at this time. 8. Code status. He wishes to be a full code. TIME SPENT: Approximately 60 minutes was spent admitting this patient for which greater than 50% of this time on taking history and performing physical exam. I went on and discussed the case with my attending, who agreed to plan of care and plan for Oncology to follow him up tomorrow. FLAVIA YAÑEZ [id number]/[facility] #: [id number] ELSA
[2017-12-17] MEDS ORDERED: Diazepam TAB(*) 10 MG PO SCH (21:00)
[2017-12-17] MEDS ORDERED: Lactulose* 15 ML UDC PO SCH (21:00)
[2017-12-18] MEDS: NS 0.9% 1000 ML* 1,000 ML IV SCH ×3 (00:47→16:39)
[2017-12-18 05:38] LABS: ABS Basophils 0.1 10^3/ul (0-0.2); ABS Eosinophils 0 10^3/ul (0-0.6); ABS Lymphocytes 0.7 10^3/ul (1.0-4.8); ABS Monocytes 1.5 10^3/ul (0-0.8); ABS Neutrophils 8.6 10^3/ul (1.5-7.7); ABS Nucleated RBC 0 10^3/ul; Eosinophil % 0.1 % (0-6); Hematocrit 23 % (42-52); Hemoglobin 7.6 g/dl (14.0-18.0); Lymphocyte % 6.5 % (25-47); Mean Corpuscular HGB Conc 33 g/dl (31-36); Mean Corpuscular Hemoglobin 28 pg (27-31); Mean Corpuscular Volume 86 fL (80-94); Mean Platelet Volume 8.8 um3 (7.4-10.4); Nucleated Red Blood Cells % 0; Platelet Count 109 10^3/ul (150-450); Red Blood Count 2.69 10^6/ul (4.00-5.40); Red Cell Distribution Width 19 % (10.5-15)
[2017-12-18 05:54] LABS: EGFR Non-African American 100.2 (>60)
[2017-12-18] MEDS: Insulin LISPRO* 1 UNITS UNIT SUBCUT SCH ×4 (08:28→21:17)
[2017-12-18] MEDS: IRON POLYSACCHARIDE COMPLEX 150 MG PO SCH (08:35)
[2017-12-18] MEDS: Magnesium Oxide TAB* 400 MG PO SCH (08:35)
[2017-12-18] MEDS: Spironolactone TAB* 25 MG PO SCH (09:25)
--- NOTE | 2017-12-18 10:00 | PN ---
Progress Note - Progress Note Date of Service: 12/18/17 SOAP: Subjective: []Better then yesterday. Started talking, ate some today. Still very weak. Not in pain. Having bowl movements. No fevers. Acetaminophen (Tylenol Tab*) 650 mg PO Q6H PRN PRN Reason: FEVER/PAIN Al Hydrox/Mg Hydrox/Simethicone (Maalox Plus*) 30 ml PO Q6H PRN PRN Reason: INDIGESTION Albuterol (Ventolin 2.5 Mg/3 Ml Neb.Kat*) 2.5 mg INH [id number] AWAKE PRN PRN Reason: sob/wheezing Dextrose (D50w Syringe 50 Ml*) 12.5 gm IV PUSH .FOR FS < 60 - SS PRN PRN Reason: FS < 60 Diazepam (Valium Tab(*)) 10 mg PO BEDTIME [facility] Last Admin: 12/17/17 20:33 Dose: 10 mg Sodium Chloride (Ns 0.9% 1000 Ml*) 1,000 mls @ 125 mls/hr IV PER RATE [facility] Last Admin: 12/18/17 08:34 Dose: 125 mls/hr Insulin Human Lispro (Humalog*) 0 units SUBCUT ACHS [facility]; Protocol Last Admin: 12/18/17 08:28 Dose: Not Given Lactulose (Lactulose*) 30 ml PO DAILY [facility] Last Admin: 12/18/17 08:35 Dose: 30 ml Loperamide HCl (Imodium Cap*) 2 mg PO TID PRN PRN Reason: DIARRHEA Magnesium Hydroxide (Milk Of Magnesia Liq*) 30 ml PO Q4H PRN PRN Reason: CONSTIPATION Magnesium Oxide (Magox 400 Tab*) 400 mg PO DAILY [facility] Last Admin: 12/18/17 08:35 Dose: 400 mg Morphine Sulfate (Morphine Inj (Syringe)*) 2 mg IV Q4H PRN PRN Reason: PAIN - MILD (Iron Polysaccharide Complex [Ferrex 150 ] 150 Mg) 150 mg PO DAILY [facility] Last Admin: 12/18/17 08:35 Dose: Not Given Ondansetron HCl (Zofran Inj*) 4 mg IV Q4H PRN PRN Reason: NAUSEA/VOMITING Prochlorperazine (Compazine Tab*) 10 mg PO Q6H PRN PRN Reason: NAUSEA Spironolactone (Aldactone Tab*) 50 mg PO QAM [facility] Last Admin: 12/18/17 09:25 Dose: 50 mg Objective: [] Vital Signs Temp Pulse Resp BP Pulse Ox 98.1 F 113 18 102/65 96 12/18/17 07:49 12/18/17 07:49 12/18/17 08:42 12/18/17 07:49 12/18/17 07:49 HEENT - sclera ictus. OM moist CTA RRR S1S2 Distended Abd, some fluid, ostomy with stool and air. +2 DEMOND neuro w/ masked affect, oriented. Hgb 7.6 T Bili 5 Assessment: []67 year old with end stage colon cancer, liver and pulmonary metastatic disease. Not tolerating salvage therapy and we discussed that best course is hospice. Goal is QOL and prognosis is sever months. Patient and understand prognosis and amenable to hospice. He wants to go home and discussed home hospice. still want to have door open, should he improve, to look into clinical trials in future. That is reasonable. Plan: []1. Will transfuse 2 UPRBC 2. Continue IVF 3. Try Prednisone 20 mg po q am as appetite stimulant. 4. PT OT and goal of discharge on hospice. 5. Discussed DNR and will consider, full code at this time. 6. Follow labs daily. face time 40 min with patient and chart
[2017-12-18] MEDS: Diazepam TAB(*) 5 MG PO SCH (19:56)
[2017-12-19] MEDS: NS 0.9% 1000 ML* 1,000 ML IV SCH ×3 (05:33→23:46)
[2017-12-19] MEDS: Spironolactone TAB* 25 MG PO SCH (08:50)
[2017-12-19] MEDS: Magnesium Oxide TAB* 400 MG PO SCH (08:51)
[2017-12-19] MEDS: IRON POLYSACCHARIDE COMPLEX 150 MG PO SCH (08:52)
[2017-12-19] MEDS: Insulin LISPRO* 1 UNITS UNIT SUBCUT SCH ×4 (08:54→22:59)
[2017-12-19 10:20] LABS: ABS Basophils 0.1 10^3/ul (0-0.2); ABS Eosinophils 0.1 10^3/ul (0-0.6); ABS Lymphocytes 0.4 10^3/ul (1.0-4.8); ABS Monocytes 0.8 10^3/ul (0-0.8); ABS Neutrophils 7.2 10^3/ul (1.5-7.7); ABS Nucleated RBC 0 10^3/ul; Eosinophil % 0.6 % (0-6); Hematocrit 28 % (42-52); Hemoglobin 9.2 g/dl (14.0-18.0); Lymphocyte % 4.5 % (25-47); Mean Corpuscular HGB Conc 32 g/dl (31-36); Mean Corpuscular Hemoglobin 28 pg (27-31); Mean Corpuscular Volume 87 fL (80-94); Mean Platelet Volume 9.2 um3 (7.4-10.4); Nucleated Red Blood Cells % 0.1; Platelet Count 116 10^3/ul (150-450); Red Blood Count 3.29 10^6/ul (4.00-5.40); Red Cell Distribution Width 18 % (10.5-15); White Blood Count 8.5 10^3/ul (3.5-10.8)
[2017-12-19 10:35] LABS: EGFR Non-African American 115.6 (>60)
--- NOTE | 2017-12-19 11:34 | PN ---
Progress Note - Progress Note Date of Service: 12/19/17 SOAP: Subjective: [Patient reports feeling better today. Strength is improving, but still requires assistance with ambulation. Denies abd pain, n/v. Liquid stool in colostomy bag.] Objective: [ Vital Signs Temp Pulse Resp BP Pulse Ox 97.7 F 97 19 114/71 100 12/19/17 08:02 12/19/17 08:02 12/19/17 08:02 12/19/17 08:02 12/19/17 08:02 Laboratory Results - last 24 hr 12/18/17 12/18/17 12/18/17 05:15 16:45 19:56 WBC RBC Hgb Hct MCV MCH MCHC RDW Plt Count MPV Neut % (Auto) Lymph % (Auto) [place] % (Auto) Eos % (Auto) Baso % (Auto) Absolute Neuts (auto) Absolute Lymphs (auto) Absolute Monos (auto) Absolute Eos (auto) Absolute Basos (auto) Absolute Nucleated RBC Nucleated RBC % Sodium Potassium Chloride Carbon Dioxide Anion Gap BUN Creatinine Est GFR ( Amer) Est GFR (Non-Af Amer) BUN/Creatinine Ratio Glucose POC Glucose (mg/dL) 176 H 222 H Calcium Total Bilirubin AST ALT Alkaline Phosphatase Total Protein Albumin Globulin Albumin/Globulin Ratio Blood Type O Positive Antibody Screen Positive Antibody Identification Anti-K Direct Antiglob Test Negative Crossmatch See Detail 12/19/17 12/19/17 12/19/17 08:41 09:50 09:50 WBC 8.5 RBC 3.29 L Hgb 9.2 L Hct 28 L MCV 87 MCH 28 MCHC 32 RDW 18 H Plt Count 116 L MPV 9.2 Neut % (Auto) 85.0 H Lymph % (Auto) 4.5 L [place] % (Auto) 9.3 H Eos % (Auto) 0.6 Baso % (Auto) 0.6 Absolute Neuts (auto) 7.2 Absolute Lymphs (auto) 0.4 L Absolute Monos (auto) 0.8 Absolute Eos (auto) 0.1 Absolute Basos (auto) 0.1 Absolute Nucleated RBC 0 Nucleated RBC % 0.1 Sodium 131 L Potassium 3.9 Chloride 104 Carbon Dioxide 20 L Anion Gap 7 BUN 17 Creatinine 0.68 Est GFR ( Amer) 139.9 Est GFR (Non-Af Amer) 115.6 BUN/Creatinine Ratio 25.0 H Glucose 179 H POC Glucose (mg/dL) 140 H Calcium 7.7 L Total Bilirubin 5.90 H AST 53 H ALT 34 Alkaline Phosphatase 283 H Total Protein 5.7 L Albumin 2.2 L Globulin 3.5 Albumin/Globulin Ratio 0.6 L Blood Type Antibody Screen Antibody Identification Direct Antiglob Test Crossmatch Acetaminophen (Tylenol Tab*) 650 mg PO Q6H PRN PRN Reason: FEVER/PAIN Last Admin: 12/18/17 19:55 Dose: 650 mg Al Hydrox/Mg Hydrox/Simethicone (Maalox Plus*) 30 ml PO Q6H PRN PRN Reason: INDIGESTION Albuterol (Ventolin 2.5 Mg/3 Ml Neb.Kat*) 2.5 mg INH [id number] AWAKE PRN PRN Reason: sob/wheezing Dextrose (D50w Syringe 50 Ml*) 12.5 gm IV PUSH .FOR FS < 60 - SS PRN PRN Reason: FS < 60 Diazepam (Valium Tab(*)) 5 mg PO BEDTIME [facility] Last Admin: 12/18/17 19:56 Dose: 5 mg Sodium Chloride (Ns 0.9% 1000 Ml*) 1,000 mls @ 125 mls/hr IV PER RATE [facility] Last Admin: 12/19/17 05:33 Dose: 125 mls/hr Insulin Human Lispro (Humalog*) [address] [facility]; Protocol Last Admin: 12/19/17 08:54 Dose: 1 unit Lactulose (Lactulose*) 30 ml PO DAILY [facility] Last Admin: 12/19/17 08:50 Dose: 30 ml Loperamide HCl (Imodium Cap*) 2 mg PO TID PRN PRN Reason: DIARRHEA Magnesium Oxide (Magox 400 Tab*) 400 mg PO DAILY [facility] Last Admin: 12/19/17 08:51 Dose: 400 mg Morphine Sulfate (Morphine Inj (Syringe)*) 2 mg IV Q4H PRN PRN Reason: PAIN - MILD (Iron Polysaccharide Complex [Ferrex 150 ] 150 Mg) 150 mg PO DAILY [facility] Last Admin: 12/19/17 08:52 Dose: Not Given Ondansetron HCl (Zofran Inj*) 4 mg IV Q4H PRN PRN Reason: NAUSEA/VOMITING Prochlorperazine (Compazine Tab*) 10 mg PO Q6H PRN PRN Reason: NAUSEA Spironolactone (Aldactone Tab*) 50 mg PO QAM [facility] Last Admin: 12/19/17 08:50 Dose: 50 mg Exam: Gen: Chronically ill appearing 67 yo male in NAD, accompanied by his HEENT: mild scleral icterus CV: RRR, no m/r/g Resp: lungs CTA, no w/c/r Abd: distended, soft, colostomy in place and nonTTP Ext: mild LE edema] Assessment: [67 yo male with metastatic CRC admitted with altered mental status likely due to mild hepatic encephalopathy and generalized intolerance of oral chemotherapy. Plans for Hospice.] Plan: [Hepatic encephalopathy - improving with fluids and lactulose - noted rising Tbili with mild transaminitis - likely due to progression of hepatic metastases Metastatic CRC - plan for Hospice at home Dispo: anticipate dc home with Hospice, likely tomorrow.]
[2017-12-19] MEDS: Diazepam TAB(*) 5 MG PO SCH (22:59)
[2017-12-20 07:07] LABS: ABS Basophils 0.1 10^3/ul (0-0.2); ABS Eosinophils 0.1 10^3/ul (0-0.6); ABS Lymphocytes 0.4 10^3/ul (1.0-4.8); ABS Monocytes 0.8 10^3/ul (0-0.8); ABS Neutrophils 4.5 10^3/ul (1.5-7.7); ABS Nucleated RBC 0 10^3/ul; Eosinophil % 1.2 % (0-6); Hematocrit 26 % (42-52); Hemoglobin 8.3 g/dl (14.0-18.0); Lymphocyte % 6.8 % (25-47); Mean Corpuscular HGB Conc 32 g/dl (31-36); Mean Corpuscular Hemoglobin 28 pg (27-31); Mean Corpuscular Volume 87 fL (80-94); Mean Platelet Volume 9.1 um3 (7.4-10.4); Nucleated Red Blood Cells % 0.1; Platelet Count 112 10^3/ul (150-450); Red Blood Count 2.98 10^6/ul (4.00-5.40); Red Cell Distribution Width 19 % (10.5-15); White Blood Count 5.9 10^3/ul (3.5-10.8)
[2017-12-20] MEDS: Spironolactone TAB* 25 MG PO SCH (08:33)
[2017-12-20] MEDS: Insulin LISPRO* 1 UNITS UNIT SUBCUT SCH ×2 (08:34→13:39)
[2017-12-20] MEDS: Magnesium Oxide TAB* 400 MG PO SCH (08:34)
[2017-12-20] MEDS: IRON POLYSACCHARIDE COMPLEX 150 MG PO SCH (08:34)
[2017-12-20] MEDS: NS 0.9% 1000 ML* 1,000 ML IV SCH (08:36)
[2017-12-20 12:06] VITALS: BP 118/60
--- NOTE | 2017-12-21 05:29 | DS ---
AMENDED REPORT NOW INCLUDES DESIGNATED COSIGNER CC: Dr. Andrade * DISCHARGE SUMMARY: DATE OF ADMISSION: 12/17/17 DATE OF DISCHARGE: 12/20/17 PRIMARY CARE PROVIDER: Dr. Andrade. PRIMARY ONCOLOGIST AND ATTENDING PHYSICIAN: Dr. Leonardo Merino.* (DICTATED BY FLAVIA HUMMEL)_ DISCHARGING PROVIDER: FLAVIA Hummel PRIMARY DISCHARGE DIAGNOSES: 1. Hepatic encephalopathy. 2. Intermittent peristomal bleeding with associated blood loss anemia. 3. Metastatic colorectal cancer with pulmonary and liver metastasis. SECONDARY DISCHARGE DIAGNOSES: 1. Diabetes. 2. Colostomy in place. DISCHARGE MEDICATIONS: 1. Acetaminophen 2 tablets p.o. daily as needed for pain and fever. 2. Valium 10 mg p.o. at bedtime. 3. Iron polysaccharide complex 150 mg p.o. daily. 4. Magnesium oxide 400 mg p.o. daily. 5. Zofran 4 mg p.o. q.6 hours as needed for nausea and vomiting. 6. Compazine 10 mg p.o. q.6 hours as needed for nausea and vomiting. 7. Spironolactone 50 mg p.o. daily 8. Lactulose 30 mL p.o. daily. Medication changes: 1. Stop glipizide. 2. Stop furosemide. 3. Start lactulose. HOSPITAL IMAGIN. CT brain shows no intracranial mass or hemorrhage. 2. Chest x-ray shows multiple pulmonary masses. No definite infiltrate. HOSPITAL COURSE: This is a 67-year-old gentleman with metastatic colorectal cancer with pulmonary and hepatic metastasis, most recently started on Lonsurf as a salvage therapy after progression on recent chemotherapy who experienced multiple falls at home with some increased confusion and mild somnolence which brought him to the emergency department for evaluation. A CT scan was completed of the brain, which was unremarkable and chest x-ray was also unremarkable as initial lab showed mild leukocytosis with the white blood cell count of 14,000, hemoglobin of 8.4 which seems to be near his baseline and a platelet count of 133,000, again near his baseline. Initial chemistries showed a mild transaminitis with significantly elevated total bilirubin of 5.5, measured at 3.7 approximately the week prior with an ammonia of 56. The patient was treated for hepatic encephalopathy with lactulose and fluids with some improvement in his mental status. There was no sign of active infection. The rise in bilirubin as well as mild transaminitis likely represent the progression of his hepatic metastasis and he overall has been tolerating his salvage therapy quite poorly. Dr. Merino recommended pursuing hospice. The patient has been in agreement with this plan, but his has been anxious and resistant to pursuing hospice. Briefly discussed clinical trials, but his performance status is such that he would not be a knowledgeable candidate. During his hospitalization, he received total of 3 units of packed red blood cells, the last on 10/20/17, day of discharge, with hemoglobin of 8.3. He did have some intermittent bleeding during his hospitalization and does have a well known history of peristomal bleed generally due to some varicosities in the area. His oral intake has remained very poor, but he has been tolerating the lactulose well. His mental status is back to baseline and he is quite clear that he would like to pursue palliative measures only. DISPOSITION AND FOLLOWUP PLAN: The patient is being discharged to home with plan for sign-on with home hospice. Multiple discussions between he and his in terms of goals of care. They would like to maintain that if his performance status improved that he could sign off of hospice and pursue clinical trials at that time, which seems reasonable. Follow up with Dr. Merino will be on an as-needed basis in his office. FLAVIA HUMMEL [id number]/[facility] #: [id number] ELSA
== END 2017-12-20 15:00 | disposition hospice, home (50) | DRG 442 ==
LOC: ED 10:37 → MED 15:17 → OBSVTOIN 12-18 11:45
PROVIDERS: ADMIT Physician Assistant Surgical; ATTEND Internal Medicine Hematology & Oncology
PROC: 30233N1 Transfusion of Nonautologous Red Blood Cells into Peripheral Vein, Percutaneous Approach (ICD-10-PCS; principal; 2017-12-18)
DX: K72.90 Hepatic failure, unspecified without coma (principal); K94.01 Colostomy hemorrhage; D62 Acute posthemorrhagic anemia; C19 Malignant neoplasm of rectosigmoid junction; C78.7 Secondary malignant neoplasm of liver and intrahepatic bile duct; C78.00 Secondary malignant neoplasm of unspecified lung; R18.8 Other ascites; E83.42 Hypomagnesemia; E11.9 Type 2 diabetes mellitus without complications; R74.0 Nonspecific elevation of levels of transaminase and lactic acid dehydrogenase [LDH]; I10 Essential (primary) hypertension; E66.9 Obesity, unspecified; K74.69 Other cirrhosis of liver; L40.9 Psoriasis, unspecified; M54.30 Sciatica, unspecified side; Z68.31 Body mass index [BMI] 31.0-31.9, adult; Z79.84 Long term (current) use of oral hypoglycemic drugs; Z79.1 Long term (current) use of non-steroidal anti-inflammatories (NSAID); Z79.899 Other long term (current) drug therapy; Z88.8 Allergy status to other drugs, medicaments and biological substances; Z83.3 Family history of diabetes mellitus; Z80.8 Family history of malignant neoplasm of other organs or systems
CPT/HCPCS: 36415; 70450; 71045; 80053; 80320; 80329; 81003; 82140; 82550; 83605; 83735; 84443; 84484; 85025; 85610; 86850; 86870; 86880; 86900; 86901; 86905; 86922; 93005; 99232; 99233; 99239; 99283; A9270-GY; G0378; G0480; G8978-GP-CH; G8979-GP-CH; G8980-GP-CH; J1642; P9040

== ENCOUNTER 2018-01-22 07:14 | Emergency (ER) | payer MEDICARE, BC ==
[2018-01-22 07:32] VITALS: BP 118/64
--- NOTE | 2018-01-22 08:20 | UC ---
Abdominal Pain Male HPI - HPI Summary HPI Summary: Patient with Compass medical history including metastatic colon cancer with metastases to the liver and lung. Patient is no longer receiving chemotherapy treatments. Patient came today for routine outpatient blood work as he has an appointment tomorrow scheduled with his oncologist. Patient's was concerned because patient had urinary frequency yesterday. Patient without urinary frequency today. Patient has nausea vomiting. No back pain. No penile or testicular pain. No penile discharge. No history UTIs. No dysuria. Just frequency. Patient's wanted him to be checked. Patient without any fevers. Patient's colostomy continues with good output. Patient's medications reviewed this visit - History of Current Complaint Chief Complaint: UCGU Stated Complaint: URINARY Time Seen by Provider: 01/22/18 07:48 Hx Obtained From: Patient Onset/Duration: Gradual Onset Severity Initially: Mild Severity Currently: None Pain Intensity: 0 Pain Scale Used: 0-10 Numeric - Allergies/Home Medications Allergies/Adverse Reactions: Allergies Allergy/AdvReac Type Severity Reaction Status Date / Time enoxaparin [From Lovenox] Allergy Severe Shakes Verified 01/22/18 07:25 oxaliplatin AdvReac Severe Unknown Verified 01/22/18 07:25 Reaction Details Home Medications: Home Medications predniSONE TAB* [Deltasone 1 MG TAB*] 1 tab DAILY 01/22/18 [History Confirmed ] PMH/Surg Hx/FS Hx/Imm Hx Previously Healthy: No - mestatatic colon ca, liver - Surgical History Surgical History: Yes Surgery Procedure, Year, and Place: colostomy, interventional radiology liver chemo pods, POWERPORT LCW, STENT IN GROIN FOR LOWER EXTREMITY DVT - Family History Known Family History: Positive: Diabetes Negative: Cardiac Disease, Hypertension - Social History Occupation: Retired Lives: With Family Alcohol Use: None Substance Use Type: None Smoking Status (MU): Never Smoked Tobacco - Immunization History Most Recent Influenza Vaccination: Nov 2017 Most Recent Tetanus Shot: WITHIN 10 YEARS Most Recent Pneumonia Vaccination: 2017 Review of Systems All Other Systems Reviewed And Are Negative: Yes Constitutional: Positive: Negative Skin: Positive: Negative Genitourinary: Positive: Frequency. Negative: Dysuria, Hematuria Physical Exam - Summary Physical Exam Summary: Vital Signs Reviewed: Yes A+Ox3, no distress, pt agitated because "this is my wifes idea, i'm fine" Eyes: Conjunctiva Clear, SHAMEKA. EOM intact and full, mild icteric ENT: Hearing grossly normal TM x 2 clear, mmoist, uvula midline, no exudate, no erythema Neck: Positive: Supple Respiratory: Positive: No respiratory distress, No accessory muscle use + CTA throughout no w/r Cardiovascular: RRR nl s1, s2 no m/r CBT <2 sec abd soft + BS nt/nd no guarding, no distension,colostomy, no CVA Musculoskeletal Exam: NOLAND x 4 without difficulty Strength Intact, ROM Intact Neurological: Positive: Alert, + sensation throughout Psychological: Positive: Normal Response To Family Skin: Positive: no rash, no ecchymosis, mild jaundice Triage Information Reviewed: Yes Vital Signs: Initial Vital Signs Temp 98 F 01/22/18 07:27 Pulse 103 01/22/18 07:27 Resp 16 01/22/18 07:27 BP 118/64 01/22/18 07:27 Pulse Ox 99 01/22/18 07:27 Abd Pain Male Course/Dx - Course Course Of Treatment: Pt presents with urinary frequency yesterday. No other complaints or symptoms. Pt without sx today. Pt unable to produce a urine today Pt reports feels "fine" Pt does not want to wait or try. Pt drinking juice. Will send pt with specimen container and outpt lab slip. pt has appt tmrw with oncology. reviewed with pt strict return precautions - agreement with plan - Differential Dx/Clinical Impression Provider Diagnoses: urinary frequency Discharge - Sign-Out/Discharge Documenting (check all that apply): Patient Departure All imaging exams completed and their final reports reviewed: No - Discharge Plan Condition: Stable Disposition: HOME Patient Education Materials: Urinary Urgency and Frequency (DC) Referrals: Saúl Andrade MD [Primary Care Provider] - Leonardo Merino MD [Medical Doctor] - Additional Instructions: You were unable to give a urine specimen today. You have been given a lab slip and urine collection kit for home. If you are able to make urine, return a sample for testing. Keep your appointment with Dr. Merino tomorrow as scheduled - he will be able to see your urine result Stay hydrated -drink plenty of non-alcoholic, non-caffinated beverages Contact your doctor or return with questions or concerns - Billing Disposition and Condition Condition: STABLE Disposition: Home
--- NOTE | 2018-01-22 09:01 | UC ---
Discharge - Sign-Out/Discharge Documenting (check all that apply): Patient Departure All imaging exams completed and their final reports reviewed: No Studies - Discharge Plan Condition: Stable Disposition: HOME Patient Education Materials: Urinary Urgency and Frequency (DC) Referrals: Saúl Andrade MD [Primary Care Provider] - Leonardo Merino MD [Medical Doctor] - Additional Instructions: You were unable to give a urine specimen today. You have been given a lab slip and urine collection kit for home. If you are able to make urine, return a sample for testing. Keep your appointment with Dr. Merino tomorrow as scheduled - he will be able to see your urine result Stay hydrated -drink plenty of non-alcoholic, non-caffinated beverages Contact your doctor or return with questions or concerns - Billing Disposition and Condition Condition: STABLE Disposition: Home
--- NOTE | 2018-01-25 07:41 | UC ---
- Progress Note Progress Note: urine culture neg no change alyxj 01/25/18 Discharge - Sign-Out/Discharge Documenting (check all that apply): Post-Discharge Follow Up All imaging exams completed and their final reports reviewed: No Studies - Discharge Plan Condition: Stable Disposition: HOME Patient Education Materials: Urinary Urgency and Frequency (DC) Referrals: Saúl Andrade MD [Primary Care Provider] - Leonardo Merino MD [Medical Doctor] - Additional Instructions: You were unable to give a urine specimen today. You have been given a lab slip and urine collection kit for home. If you are able to make urine, return a sample for testing. Keep your appointment with Dr. Merino tomorrow as scheduled - he will be able to see your urine result Stay hydrated -drink plenty of non-alcoholic, non-caffinated beverages Contact your doctor or return with questions or concerns - Billing Disposition and Condition Condition: STABLE Disposition: Home
== END 2018-01-22 08:31 | disposition home or self-care (01) ==
LOC: UCCORT 07:14
DX: R35.0 Frequency of micturition (principal); C18.9 Malignant neoplasm of colon, unspecified; C78.7 Secondary malignant neoplasm of liver and intrahepatic bile duct; C78.00 Secondary malignant neoplasm of unspecified lung; Z93.3 Colostomy status; Z88.8 Allergy status to other drugs, medicaments and biological substances; Z92.21 Personal history of antineoplastic chemotherapy
CPT/HCPCS: 99211; G0463